=== PATIENT | male | born 1990 | race Caucasian/White ===

== ENCOUNTER 2018-04-17 21:28 | Inpatient (IN) | payer OTHER ==
[2018-04-17 21:35] VITALS: BMI 23.2
--- NOTE | 2018-04-17 21:45 | PDOC ---
History of Present Illness - History of Present Illness Initial Comments: 04/17/18 21:55 The patient is a 27 year old male, with no significant past medical history, who presents to the emergency department with, dysphasia. As per patient, he was eating steak an hour prior to his arrival when he feels as if a piece got stuck in his esophagus. Patient notes associated nausea, vomiting, and pain to the mid-esophagus. The patient endorses the pain to worsen when sitting down, prompting his visit to the ER tonight. He denies any recent fevers, chills, headache or dizziness. He denies any recent diarrhea or constipation. He denies any recent shortness of breath. He denies any recent dysuria, frequency, urgency or hematuria. PAST MEDICAL HISTORY: no significant history PAST SURGICAL HISTORY: no significant history FAMILY HISTORY: no pertinent history SOCIAL HISTORY: Pt lives with family and is employed. MEDICATIONS: reviewed ALLERGIES: As per nursing notes ROS: +General: Dysphasia. No fevers or chills, no weakness, no weight loss HEENT: No change in vision. No sore throat,. No ear pain +CHEST: Mid-esophageal pain. CardioVascular: No chest pain or shortness of breath Respiratory:No cough, or wheezing. Gastrointestinal: no nausea, vomiting, diarrhea or constipation, No rectal bleeding Genitourinary: No dysuria, hematuria, or frequency Musculoskeletal: No joint or muscle pain or swelling Neurologic: No headache, vertigo, dizziness or loss of consciousness Psychiatric: nor depression Skin: No rashes or easy bruising Endocrine: no increased thirst or abnormal weight change Allergic: no skin or latex allergy All other systems reviewed and normal Physical Exam: +General: Moderate distress. Able to speak in full sentences no shortness of breath. HEENT: Throat: Normal, tonsils normal, no erythema or exudate Neck: Supple, no meningeal signs, no lymphadenopathy Eyes::Pupils equal reactive and round, extraocular motion intact +Chest: Points to mid-esophagus for location of impaction. Nontender to palpation Cardiac: S1-S2 normal, regular rate and rhythm, no murmurs rubs or gallops Respiratory: Lungs clear to auscultation bilateral Abdomen: Soft, nondistended, normal bowel sounds, nontender to palpation diffusely Extremities: Warm, dry, no cyanosis, clubbing, or edema Skin: No rashes Neuro: Alert and oriented x3, nonfocal exam, grossly intact, normal gait +Psych: Anxious upon exam. <Deborah Ramirez - Last Filed: 04/17/18 21:55> - General History Source: Patient Exam Limitations: No Limitations - History of Present Illness Initial Comments: 04/17/18 22:03 A portion of this note was documented by scribe services under my direction. I have reviewed the details of the note, within reason, and agree with the documentation. The case summary and management plan written by me. Assessment and plan: This is 27-year-old male who comes in complaining of a chicken food bolus impaction in his mid esophagus area. Patient given glucagon and blood work sent 04/17/18 22:44 Patient given glucagon approximately 1 hour ago with no improvement in his symptoms. GI doctor Aline was called who has accepted the patient and patient will be transferred over to [facility] for endoscopy and removal of the esophageal impaction 04/17/18 23:19 <Cori Lawson I - Last Filed: 04/17/18 23:19> - General Chief Complaint: Dysphagia Stated Complaint: FOOD IMPACTION Time Seen by Provider: 04/17/18 21:39 Past History <Deborah Ramirez - Last Filed: 04/17/18 21:55> - Past Medical History COPD: No - Suicide/Smoking/Psychosocial Hx Smoking History: Never smoked Hx Alcohol Use: Yes Substance Use Type: Alcohol <Cori Lawson I - Last Filed: 04/17/18 23:19> - Past Medical History Allergies/Adverse Reactions: Allergies Allergy/AdvReac Type Severity Reaction Status Date / Time Penicillins AdvReac Verified 11/20/13 19:58 Home Medications: Ambulatory Orders Fexofenadine/Pseudoephedrine [Fexofenadine-Pse ER 180-240 Tb] 1 each PO DAILY # 30 tab.sr.24h 11/20/13 *Physical Exam - Vital Signs Last Vital Signs Temp Pulse Resp BP Pulse Ox 98.2 F 95 H 16 130/91 98 04/17/18 21:31 04/17/18 21:31 04/17/18 21:31 04/17/18 21:31 04/17/18 21:31 <Deborah Ramirez - Last Filed: 04/17/18 21:55> - Vital Signs Last Vital Signs Temp Pulse Resp BP Pulse Ox 98.2 F 95 H 16 130/91 98 04/17/18 21:31 04/17/18 21:31 04/17/18 21:31 04/17/18 21:31 04/17/18 21:31 <Cori Lawson I - Last Filed: 04/17/18 23:19> ED Treatment Course - LABORATORY CBC & Chemistry Diagram: 04/17/18 22:05 04/17/18 22:05 <Cori Lawson I - Last Filed: 04/17/18 23:19> *DC/Admit/Observation/Transfer - Attestations Scribe Attestion: 04/17/18 21:55 Documentation prepared by Deborah Ramirez, acting as medical appliance maker for Cori Lawson MD. <Deborah Ramirez - Last Filed: 04/17/18 21:55> <Cori Lawson I - Last Filed: 04/17/18 23:19> Diagnosis at time of Disposition: Food impaction of esophagus Qualifiers: Encounter type: initial encounter Qualified Code(s): T18.128A - Food in esophagus causing other injury, initial encounter - Discharge Dispostion Condition at time of disposition: Stable
[2018-04-17] MEDS ORDERED: GLUCAGON 1 MG KIT IVPUSH ONE (21:50)
[2018-04-17] MEDS ORDERED: morphine CARPU-JECT 2 MG/1 ML DISP.SYRIN IVPUSH ONE ×2 (21:51→22:36)
[2018-04-17] MEDS ORDERED: GLUCAGON 1 MG KIT ONE (21:58)
[2018-04-17] MEDS ORDERED: morphine SULFATE 4 MG/ML VIAL ONE ×2 (21:58→22:59)
[2018-04-17] MEDS ORDERED: ACETAMINOPHEN INJECTION 100 ML IVPB ONE (22:07)
[2018-04-17 22:14] LABS: BASO % 3.3 % (0-2.0); EOS % 1.4 % (0-4.5); HEMATOCRIT 43.1 % (35.4-49); HEMOGLOBIN 14.6 GM/dl (11.7-16.9); LYMPH % 35.2 % (8-40); MCH 30.5 pg (25.7-33.7); MCHC 33.8 g/dl (32.0-35.9); MEAN CELL VOLUME 90.3 fl (80-96); MEAN PLT VOLUME 9.6 fl (7.5-11.1); MONO % 6.4 % (3.8-10.2); NEUT % 53.7 % (42.8-82.8); PLATELET COUNT 308 K/MM3 (134-434); RBC 4.78 M/mm3 (4.00-5.60); RDW 12.2 % (11.9-15.9); WHITE BLOOD COUNT 9.5 K/mm3 (4.0-10.8)
[2018-04-17] MEDS ORDERED: ACETAMINOPHEN 1000 MG/100 ML VIAL (NON FORMULARY) IVPB ONE (22:16)
[2018-04-17 22:29] LABS: ALBUMIN 5.1 g/dl (3.5-5.0); ALK PHOS 55 U/L (32-92); ANION GAP 10 MMOL/L (8-16); BILIRUBIN,TOTAL 0.6 mg/dl (0.2-1.0); BLOOD UREA NITROGEN 19 mg/dl (7-18); CALCIUM 9.7 mg/dl (8.4-10.2); CHLORIDE 104 mmol/L (98-107); CO2 26 mmol/L (22-28); CREATININE 1.2 mg/dl (0.6-1.3); GLUCOSE,RANDOM 111 mg/dl (74-106); POTASSIUM 4.1 mmol/L (3.5-5.1); SGOT/AST 43 U/L (10-42); SGPT/ALT 38 U/L (10-40); SODIUM 140 mmol/L (136-145)
--- NOTE | 2018-04-18 03:25 | CON.GI ---
Consult Consult Specialty:: GI - History of Present Illness History of Present Illness: 27 y/o was admitted because of dysphagia after eating a piece of stek last night. This morning he continued to have dysphagia and chest discomfort and inability to swallow his saliva - History Source History Provided By: Patient - Alcohol/Substance Use Hx Alcohol Use: Yes - Smoking History Smoking history: Never smoked Home Medications - Allergies Allergies/Adverse Reactions: Allergies Allergy/AdvReac Type Severity Reaction Status Date / Time Penicillins AdvReac Verified 11/20/13 19:58 - Home Medications Home Medications: Ambulatory Orders Fexofenadine/Pseudoephedrine [Fexofenadine-Pse ER 180-240 Tb] 1 each PO DAILY # 30 tab.sr.24h 11/20/13 Lexapro - 15 mg PO DAILY 04/18/18 Physical Exam-GI Vital Signs: Vital Signs Temperature 98.2 F 04/17/18 21:31 Pulse Rate 95 H 04/17/18 21:31 Respiratory Rate 16 04/17/18 21:31 Blood Pressure 130/91 04/17/18 21:31 O2 Sat by Pulse Oximetry (%) 98 04/17/18 21:31 Constitutional: Yes: Well Nourished Eyes: Yes: Conjunctiva Clear HENT: Yes: Atraumatic Neck: Yes: Supple Cardiovascular: Yes: Regular Rate and Rhythm Respiratory: Yes: CTA Bilaterally ...Palpate: Yes: Soft. No: Firm/Rigid, Guarding, Hepatomegaly, Mass, Pulsatile Mass, Splenomegaly Labs: CBC, BMP 04/17/18 22:05 04/17/18 22:05 Problem List - Problems (1) Food impaction of esophagus Assessment/Plan: R> for emergent EGD risk of perforation during disimpaction discussed Code(s): T18.128A - FOOD IN ESOPHAGUS CAUSING OTHER INJURY, INITIAL ENCOUNTER Qualifiers: Encounter type: initial encounter Qualified Code(s): T18.128A - Food in esophagus causing other injury, initial encounter
[2018-04-18] MEDS ORDERED: PANTOPRAZOLE SODIUM 40 MG in SODIUM CHLORIDE 100 ML IVPB ONE (03:27)
[2018-04-18] MEDS ORDERED: SODIUM CHLORIDE 1,000 ML IV SCH (03:30)
[2018-04-18] MEDS ORDERED: oxyCODONE HCL 5 MG TABLET PO PRN (03:36)
[2018-04-18] MEDS ORDERED: ONDANSETRON 4 MG/2 ML VIAL IVPUSH PRN (03:36)
[2018-04-18] MEDS ORDERED: PROMETHAZINE HCL 25 MG/1 ML VIAL IVPUSH PRN (03:36)
[2018-04-18] MEDS ORDERED: PANTOPRAZOLE SODIUM 40 MG VIAL IVPB ONE (03:45)
[2018-04-18] MEDS: METOCLOPRAMIDE HCL INJECTION 10 MG/2 ML VIAL IVPB SCH ×2 (05:32→10:20)
[2018-04-18] MEDS ORDERED: METOCLOPRAMIDE HCL INJECTION 10 MG/2 ML VIAL IVPB SCH (13:15)
[2018-04-18] MEDS ORDERED: PANTOPRAZOLE 40 MG TABLET (FP) PO SCH (13:15)
[2018-04-18] MEDS ORDERED: AZITHROMYCIN IVPB 250 MG in DEXTROSE 5%-WATER - 250 ML IVPB SCH (13:15)
[2018-04-18 15:52] VITALS: BP 109/61; PULSE 53; TEMP 97.9
--- NOTE | 2018-04-21 16:17 | PATH ---
Surgical Pathology Report Patient Name: ANDREAS LEDEZMA Med. Rec. #: [id number] /Age/Gender: 1990 (Age: 27) / M Account: [id number] Location: [address] [place] [address]/[facility] Taken: 04/18/2018 Received: 04/18/2018 Reported: 04/21/2018 Physicians: Hola Mireles M.D. Specimen(s) Received BX MID ESOPHAGUS Clinical History Food impaction of the esophagus Final Diagnosis MID ESOPHAGUS, BIOPSY: SQUAMOUS MUCOSA WITH MILD VASCULAR CONGESTION. NO FEATURES OF EOSINOPHILIC ESOPHAGITIS IDENTIFIED. Electronically Signed Tahira Dominique M.D. Gross Description Received in formalin, labeled "biopsy midesophagus" are 2 ortega, irregular portions of soft tissue averaging 0.4 cm. in greatest dimension. The specimens are submitted in toto in one cassette. /04/18/2018 saudi04/18/2018
== END 2018-04-18 19:21 | disposition home or self-care (01) | DRG 395 ==
LOC: FER 21:28 → J5S 04-18 02:10
PROVIDERS: ADMIT Internal Medicine Gastroenterology; ATTEND Internal Medicine Gastroenterology
PROC: 0DC58ZZ Extirpation of Matter from Esophagus, Via Natural or Artificial Opening Endoscopic (ICD-10-PCS; 2018-04-18)
PROC: 0DB58ZX Excision of Esophagus, Via Natural or Artificial Opening Endoscopic, Diagnostic (ICD-10-PCS; principal; 2018-04-18 02:27)
DX: T18.128A Food in esophagus causing other injury, initial encounter (principal); K22.2 Esophageal obstruction; K44.9 Diaphragmatic hernia without obstruction or gangrene; X58.XXXA Exposure to other specified factors, initial encounter; Y93.89 Activity, other specified; Y92.89 Other specified places as the place of occurrence of the external cause; Y99.8 Other external cause status
CPT/HCPCS: 36415; 71045-TC-FY; 80053; 85025; 88305-TC; 94760; 99285-25; J0131; J7030